=== PATIENT | female | born 1975 | race Caucasian/White ===

== ENCOUNTER 2018-04-03 20:45 | Emergency (ER) | payer BC ==
[~2018-04-03] VITALS: Ht 167.6 cm; Wt 68.0 kg
[~2018-04-03 20:45] MED LIST: PRENATAL1 TA1 PO; PREVACID30 M1 PO; SYNTHROID0.075 MG PO; ZANTAC 7575 MG PO
== END 2018-04-03 22:47 ==
LOC: ED 20:45
DX: S80.11XA Contusion of right lower leg, initial encounter (principal); Z79.899 Other long term (current) drug therapy; W11.XXXA Fall on and from ladder, initial encounter; Y93.89 Activity, other specified; Y92.89 Other specified places as the place of occurrence of the external cause; Y99.8 Other external cause status